=== PATIENT | female | born 1995 | race Caucasian/White ===

== ENCOUNTER → 2020-07-12 | Outpatient (CLI) | payer OTHER ==
--- NOTE | 2020-07-12 13:56 | RAD ---
LUMBAR SPINE 2-3V DATE: 07/12/2020 10:00 AM INDICATION: Reason: BACK PAIN. / Spl. Instructions: / History: COMPARISON: None. FINDINGS: Postsurgical changes of posterior fixation at T10-L4 per Five non-rib bearing lumbar-type vertebral bodies are present. Sacralization of L5 with pseudoarthrosis on the right. Bones/Alignment: No evidence of acute compression fracture. There is no listhesis. Joints: There is no disc space loss. Miscellaneous: None. IMPRESSION: 1. Postsurgical changes of posterior instrumentation at T10-L4. 2. Transitional lumbosacral anatomy with sacralized L5 and right pseudoarthrosis. 3. Vertebral body heights, alignment, and disc spaces are maintained. Electronically signed by: Rajesh Packer MD (07/12/2020 1:53 PM) [id number]
== END ==
LOC: RAD 09:46
PROVIDERS: ATTEND Family Medicine
DX: M47.817 Spondylosis without myelopathy or radiculopathy, lumbosacral region (principal)
CPT/HCPCS: 72100